=== PATIENT | male | born 1975 | race Hispanic/Latino ===

== ENCOUNTER 2025-08-11 09:00 | Day surgery (SDC) | payer MEDICARE ==
[2025-08-10 15:10] LABS: IMMATURE GRANULOCYTE ABSOLUTE 0.02 K/uL (0-1); NUCLEATED RED BLOOD CELLS 0.0 % (0.0-0.19); PLATELET COUNT (AUTO) 221 K/uL (130-400); RED BLOOD CELL COUNT(AUTO) 5.17 MIL/uL (4.50-6.20); RED CELL DISTRIBUTION WIDTH 13.7 % (11.0-15.5); WHITE BLOOD COUNT (AUTO) 7.8 K/uL (4.8-10.8)
[2025-08-10 15:11] VITALS: BP 120/82; PULSE 98; RESP 18; TEMP 98.8
[2025-08-10 15:19] LABS: CREATININE 1.5 mg/dL (0.5-1.3); GLOMERULAR FILTR. RATE CALC 56.0 mL/min (>90); GLUCOSE,RANDOM 231.0 mg/dL (70-105); SODIUM SERUM 137.0 mmol/L (136-145); UREA NITROGEN, BLOOD 21.0 mg/dL (7-18)
[2025-08-10 15:20] LABS: INR 1.08 (0.85-1.15)
[~2025-08-11] VITALS: Ht 152.4 cm; Wt 85.5 kg
[2025-08-11 09:00] VITALS: BP 156/100; PULSE 79; RESP 18; TEMP 98.8
[~2025-08-11 09:00] MED LIST: ASPI-1443 PO; ATOR40TA69 PO; METF-444 PO; NIFE-40 PO; NITR0.4T50 SL
[2025-08-11] MEDS ORDERED: SODIUM BICARB 50MEQ 50ML VIAL 50 ML ONE (12:48)
[2025-08-11] MEDS ORDERED: HEParin-NS 1,000 UNIT/500 ML 500 ML IV ONE (12:48)
[2025-08-11] MEDS ORDERED: LIDOCAINE HCL 400MG/20ML VIAL ONE (12:48)
[2025-08-11 14:30] VITALS: BP 158/92; PULSE 82; RESP 16; TEMP 97.6
[2025-08-11 15:00] VITALS: BP 150/93; PULSE 82; RESP 16; TEMP 97.6
== END 2025-08-11 15:00 | disposition home or self-care (01) ==
LOC: DAH 09:00
PROVIDERS: ATTEND Internal Medicine Cardiovascular Disease
DX: R00.2 Palpitations (principal); I63.9 Cerebral infarction, unspecified; I10 Essential (primary) hypertension; E11.9 Type 2 diabetes mellitus without complications; E78.5 Hyperlipidemia, unspecified; Z79.01 Long term (current) use of anticoagulants; Z79.84 Long term (current) use of oral hypoglycemic drugs; Z79.82 Long term (current) use of aspirin; Z79.899 Other long term (current) drug therapy
CPT/HCPCS: 80048; 85025; 85610; 85730; 36415; 33285; 82948; A4649; C1764; J3490 ×2; J1644; A4215; A4222; A4221; A4663; A4216; A4606; A4223 ×3; 33286